=== PATIENT | female | born 1985 | race Two or more races ===

== ENCOUNTER 2022-04-24 14:00 | Emergency (ER) | payer OTHER ==
[~2022-04-24] VITALS: Ht 152.4 cm; Wt 79.4 kg
--- NOTE | 2022-04-24 15:20 | NUR ---
URINE SAMPLE COLLECTED AND SENT TO LAB
--- NOTE | 2022-04-24 15:21 | NUR ---
IV LINE ESTABLISHED ON LAC #20, BLOOD DRAWN AND COLLECTED BY PHLEB AT BEDSIDE
--- NOTE | 2022-04-24 15:28 | NUR ---
PT STATED THAT THERE MIGHT BE A POSSIBILITY THAT SHE IS ; LMP AROUND 02/2022, REGULAR CYCLE. WILL WAIT FOR TEST RESULT AND INFORM RADIOLOGY ACCORDINGLY.
[2022-04-24 15:32] LABS: BASOPHILS % (AUTO) 0.4 % (0.0-2.0); EOSINOPHILS % (AUTO) 1.3 % (0.0-6.0); HEMATOCRIT 32 % (33-45); HEMOGLOBIN 10.5 g/dL (11.5-14.8); LYMPHOCYTES # (AUTO) 3.6 K/uL (0.8-4.8); LYMPHOCYTES % (AUTO) 40.8 % (20.0-44.0); MEAN CORPUSCULAR HGB CONC 33 g/dl (31.0-36.0); MEAN CORPUSCULAR VOLUME 87 fL (82-100); MONOCYTES # (AUTO) 0.5 K/uL (0.1-1.30); MONOCYTES % (AUTO) 5.9 % (2.0-12.0); NEUTROPHILS # (AUTO) 4.5 K/uL (1.8-8.9); NEUTROPHILS % (AUTO) 51.6 % (43.0-81.0); PLATELET COUNT (AUTO) 218 K/uL (150-450); RED BLOOD CELL COUNT(AUTO) 3.64 MIL/uL (4.0-5.2); WHITE BLOOD COUNT (AUTO) 8.8 K/uL (4.3-11.0)
[2022-04-24 16:12] LABS: ALBUMIN 3.6 g/dL (3.4-5.0); BILIRUBIN,DIRECT 0.1 mg/dL (0.0-0.2); BILIRUBIN,TOTAL 0.4 mg/dL (0.2-1.0); CALCIUM, SERUM 8.6 mg/dL (8.5-10.1); CREATININE 0.7 mg/dL (0.6-1.3); POTASSIUM 3.2 mmol/L (3.5-5.1); TOTAL PROTEIN, SERUM 7.5 g/dL (6.4-8.2)
[2022-04-24 16:14] LABS: BILIRUBIN,URINE NEGATIVE (NEGATIVE); COLOR,URINE YELLOW (YELLOW); LEUKOCYTE ESTERASE ,URINE NEGATIVE (NEGATIVE); NITRITE, URINE NEGATIVE (NEGATIVE); PH,URINE 6.5 (5.0-8.0); PROTEIN,URINE NEGATIVE (NEGATIVE); UGLUCOSE NEGATIVE (NEGATIVE); UROBILINOGEN,URINE 0.2 EU/dL (0.2)
--- NOTE | 2022-04-24 16:33 | NUR ---
PT TAKEN TO RADIOLOGY FOR CT
--- NOTE | 2022-04-24 18:41 | NUR ---
CALLED DR. 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 LEFT A MESSAGE. WILL TRY AGAIN.
--- NOTE | 2022-04-24 19:04 | NUR ---
CALLED DR. SINGLETON AGAIN, NO OIL WELL PUMPER. LEFT ANOTHER MESSAGE. WILL CALL AGAIN.
[2022-04-24] MEDS ORDERED: ACETAMINOPHEN 325 MG TABLET ONE (20:14)
[2022-04-24] MEDS: ACETAMINOPHEN 325 MG TABLET PO ONE (20:15)
--- NOTE | 2022-04-24 20:35 | NUR ---
CALLED [facility], [facility] IS FULL AND NOT ACCEPTING TRANSFERS AT THIS TIME.
--- NOTE | 2022-04-24 20:37 | NUR ---
CALLED [facility]. NOT ACCEPTING NEW TRANSFER CASES DUE TO CAPACITY PER [facility].
--- NOTE | 2022-04-24 20:48 | NUR ---
SPOKE WITH ARACELIS FROM [facility]. CLINICALS FAXED OVER TO [phone], AWAITING CALL BACK.
--- NOTE | 2022-04-24 21:07 | NUR ---
PT NOT ACCEPTED TO [facility] PER [facility].
[2022-04-24 21:24] LABS: HEMOGLOBIN 10.5 g/dL (11.5-14.8)
--- NOTE | 2022-04-25 00:07 | NUR ---
Patient discharged to home in stable condition. Written and verbal after care instructions given. Patient verbalizes understanding of instruction.
[2022-04-25 00:08] VITALS: BP 130/82
== END 2022-04-25 00:08 | disposition home or self-care (01) ==
LOC: ER 14:00
DX: S37.92XA Contusion of unspecified urinary and pelvic organ, initial encounter (principal); R10.31 Right lower quadrant pain; Z79.899 Other long term (current) drug therapy; V49.50XA Passenger injured in collision with unspecified motor vehicles in traffic accident, initial encounter; Y93.89 Activity, other specified; Y92.89 Other specified places as the place of occurrence of the external cause; Y99.8 Other external cause status
CPT/HCPCS: 36415; 71045-TC; 80048-TC; 80076-TC; 81001; 84703-TC; 85025-TC; 85027-TC